=== PATIENT | male | born 1990 | race Caucasian/White ===

== ENCOUNTER 2016-07-19 19:45 | Emergency (ER) | payer SELFPAY ==
[~2016-07-19] VITALS: Ht 182.9 cm; Wt 68.5 kg
[~2016-07-19 19:45] MED LIST: ADVIL200 MG PO; AUGMENTIN875 MG PO
[2016-07-19] MEDS ORDERED: NORCO 5/3251 TABLET PO (23:56)
[2016-07-19] MEDS ORDERED: PEN-VEE K,VEET500 MG PO (23:56)
[2016-07-20 00:37] VITALS: BP 120/77
== END 2016-07-20 00:38 | disposition home or self-care (01) ==
LOC: EME 19:45
DX: K04.7 Periapical abscess without sinus (principal); K02.9 Dental caries, unspecified
CPT/HCPCS: 99281; 99284

== ENCOUNTER 2017-02-06 09:32 | Emergency (ER) | payer SELFPAY ==
[~2017-02-06] VITALS: Ht 182.9 cm; Wt 68.8 kg
[~2017-02-06 09:32] MED LIST changes: +NORCO 5/3251 TABLET PO; +PEN-VEE K,VEET500 MG PO
[2017-02-06 09:55] VITALS: BP 125/79
[2017-02-06] MEDS ORDERED: NAPROSYN500 MG PO (10:39)
[2017-02-06] MEDS ORDERED: PEN-VEE K,VEET500 MG PO (10:39)
== END 2017-02-06 10:47 | disposition home or self-care (01) ==
LOC: EME 09:32
DX: K04.7 Periapical abscess without sinus (principal); S02.5XXA Fracture of tooth (traumatic), initial encounter for closed fracture; K02.9 Dental caries, unspecified; J45.909 Unspecified asthma, uncomplicated; Z72.0 Tobacco use
CPT/HCPCS: 99281; 99284